=== PATIENT | female | born 1980 | race Caucasian/White ===

== ENCOUNTER 2023-03-31 18:51 | Emergency (ER) | payer MEDICAID ==
[~2023-03-31] VITALS: Ht 160 cm; Wt 81.8 kg
[2023-03-31] MEDS ORDERED: SODIUM CHLORIDE 0.9% 1,000 ML IV ONE (19:15)
[2023-03-31 19:41] LABS: BASOPHILS % 0.2 % (0.0-2.0); EOSINOPHILS % 0.8 % (0.0-5.0); HEMATOCRIT. 39.1 % (36.0-48.0); HEMOGLOBIN. 13.3 g/dL (12.0-16.0); LYMPHOCYTES % 15.9 % (20.0-50.0); MEAN CORPUSCULAR HEMOGLOBIN 29.7 pg (28.0-32.0); MEAN CORPUSCULAR VOLUME 87.6 fL (81.0-99.0); MEAN PLATELET VOLUME 7.3 fl (7.4-10.4); NEUTROPHILS % 76.1 % (40.0-76.0); PLATELET 401 x1000/uL (130-400); RED BLOOD CELL COUNT 4.46 mill/uL (4.2-5.4); RED CELL DISTRIBUTION WIDTH 15.4 % (11.6-14.6)
[2023-03-31 19:51] LABS: CHLORIDE 106 mEq/L (98-107)
[2023-04-01] MEDS ORDERED: MECLIZINE 25MG TABLET PO ONE (01:15)
[2023-04-01] MEDS ORDERED: MECLIZINE 25MG TABLET PO NR (01:45)
[2023-04-01] MEDS ORDERED: DIPHENHYDRAMINE 50MG/ML VIAL IV PRN (02:30)
[2023-04-01] MEDS ORDERED: ACETAMINOPHEN 325MG TABLET PO PRN ×2 (02:30)
[2023-04-01] MEDS ORDERED: SODIUM CHLORIDE 0.9% 1,000 ML IV SCH (02:30)
[2023-04-01] MEDS ORDERED: ONDANSETRON HCL 4MG/2ML INJ IV PRN (02:30)
[2023-04-01] MEDS ORDERED: CLONIDINE 0.1MG TABLET PO PRN (02:30)
[2023-04-01] MEDS ORDERED: MECLIZINE 25MG TABLET PO PRN (02:30)
[2023-04-01 08:36] VITALS: BP 110/68
[2023-04-01] MEDS ORDERED: FAMOTIDINE 20MG TABLET PO SCH (21:00)
== END 2023-04-01 12:33 | disposition home or self-care (01) ==
LOC: ER 18:51 → ENRESERV 04-01 06:07 → ER 04-01 12:33 → CANBEDREQ 04-01 16:00
DX: R42 Dizziness and giddiness (principal)
CPT/HCPCS: 36415; 70450; 80053; 85025; 96360; 99284; J7030; J8597

== ENCOUNTER 2024-07-16 17:32 | Emergency (ER) | payer SELFPAY ==
[~2024-07-16] VITALS: Ht 167.6 cm; Wt 95.0 kg
[2024-07-16 17:39] VITALS: O2SAT 98
[2024-07-16 20:20] LABS: BASOPHILS % 0.2 % (0.0-2.0); EOSINOPHILS % 1.1 % (0.0-5.0); HEMATOCRIT. 41.7 % (36.0-48.0); HEMOGLOBIN. 13.7 g/dL (12.0-16.0); LYMPHOCYTES % 22.6 % (20.0-50.0); MEAN CORPUSCULAR HEMOGLOBIN 29.2 pg (28.0-32.0); MEAN CORPUSCULAR VOLUME 88.6 fL (81.0-99.0); MEAN PLATELET VOLUME 7.8 fl (7.4-10.4); MONOCYTES % 6.9 % (2.0-8.0); NEUTROPHILS % 69.2 % (40.0-76.0); PLATELET 413 x1000/uL (130-400); RED CELL DISTRIBUTION WIDTH 14.3 % (11.6-14.6); WHITE BLOOD COUNT 8.8 x1000/uL (4.5-11.0)
[2024-07-16 20:22] LABS: CARBON DIOXIDE 25 mEq/L (21-32); CHLORIDE 107 mEq/L (98-107); POTASSIUM 3.9 mEq/L (3.5-5.1); SODIUM 138 mEq/L (136-145)
[2024-07-16 20:23] LABS: CALCIUM 9.6 mg/dL (8.7-10.4)
[2024-07-16 20:27] LABS: CREATININE 0.7 mg/dL (0.6-1.0)
[2024-07-16 20:28] LABS: GLUCOSE 90 mg/dL (70-105); UREA NITROGEN BLOOD 6 mg/dL (9-23)
[2024-07-16 20:29] LABS: ALANINE AMINOTRANSFERASE 30 IU/L (10-49); ALBUMIN 4.8 g/dL (3.2-4.8); ASPARTATE AMINOTRANSFERASE 22 IU/L (<34)
[2024-07-16 20:30] LABS: BILIRUBIN DIRECT 0.1 mg/dL (<=3.0); BILIRUBIN TOTAL 0.4 mg/dL (0.1-1.0); PROTEIN TOTAL 7.7 g/dL (6.0-8.3)
[2024-07-16 20:32] LABS: HCG SCREEN NEGATIVE
[2024-07-17 00:27] LABS: CLARITY URINE CLEAR (CLEAR); COLOR URINE YELLOW (YELLOW); GLUCOSE URINE NEGATIVE (NEGATIVE); KETONES URINE NEGATIVE (NEGATIVE); LEUKOCYTE ESTERASE URINE NEGATIVE (NEGATIVE); NITRITE URINE NEGATIVE (NEGATIVE); OCCULT BLOOD URINE NEGATIVE (NEGATIVE); PROTEIN URINE NEGATIVE (NEGATIVE); UROBILINOGEN URINE 0.2 E.U./dL (0.2-1.0)
[2024-07-17 02:55] VITALS: TEMP 98.2
[2024-07-17] MEDS: ACETAMINOPHEN 325MG TABLET PO ONE (02:55)
[2024-07-17] MEDS ORDERED: IBUP-2029 MT (03:43)
[2024-07-17 03:58] VITALS: BP 138/89; PULSE 67; RESP 15; O2SAT 100
== END 2024-07-17 04:13 | disposition home or self-care (01) ==
LOC: ER 17:32
DX: D25.9 Leiomyoma of uterus, unspecified (principal); Z98.890 Other specified postprocedural states
CPT/HCPCS: 36415; 74176; 76830; 76856; 80048; 80076; 81003; 81025; 84703; 85025; 86850; 86900; 99284